=== PATIENT | female | born 1955 | race Caucasian/White ===

== ENCOUNTER 2022-06-23 10:01 | Emergency (ER) | payer OTHER ==
--- NOTE | 2022-06-23 10:33 | XRAY Report ---
PROCEDURE: Chest 2 View X-Ray INDICATIONS: cough with wheezing. TECHNIQUE: 2 views of the chest were acquired. COMPARISON: None. FINDINGS: Surgical changes and devices: None. Lungs and pleura: No pleural effusions or pneumothorax. Lungs are clear. Mediastinum: Mediastinal contours appear normal. Heart size is normal. Bones and chest wall: No suspicious bony lesions. Overlying soft tissues appear unremarkable. IMPRESSION: No acute cardiopulmonary process. Reviewed by: Cody Escamilla MD on 06/23/2022 10:32 AM PDT Approved by: Cody Escamilla MD on 06/23/2022 10:32 AM PDT Station ID: [id number]
[2022-06-23 10:58] VITALS: BP 197/98
--- NOTE | 2022-06-23 11:11 | ED Physician Documentation ---
PD HPI DYSPNEA - Stated complaint Stated Complaint: WHEEZING - Chief complaint Chief Complaint: Resp - History obtained from History obtained from: Patient - Additional information Additional information: 66-year-old woman with history of hypertension developed symptomatic COVID about a week ago. She took paxlovid finishing 3 days ago and she was feeling much better. Over the last day she has developed shaking chills, cough, wheezing, shortness of breath. PD PAST MEDICAL HISTORY - Present Medications Home Medications: Ambulatory Orders Medication Instructions Recorded Confirmed Albuterol Sulf [Ventolin Hfa 1 - 2 puffs INH Q4HR PRN #1 each 06/23/22 Inhaler] Benzonatate [Tessalon] 200 mg PO TID PRN #20 cap 06/23/22 Doxycycline [Vibramycin] 100 mg PO BID #14 tablet 06/23/22 guaiFENesin/CODEINE [Robitussin AC] 5 - 10 ml PO Q6H PRN #120 ml 06/23/22 predniSONE [Deltasone] 20 mg PO [id number] #21 tab 06/23/22 - Allergies Allergies/Adverse Reactions: Allergies Allergy/AdvReac Type Severity Reaction Status Date / Time Penicillins Allergy Anaphylaxis Verified 06/23/22 10:09 PD ED PE NORMAL - Vitals Vital signs reviewed: Yes - General General: Alert and oriented X 3, No acute distress - HEENT HEENT: PERRL, EOMI, Pharynx benign - Neck Neck: Supple, no meningeal sign, No bony TTP - Cardiac Cardiac: RRR, No murmur - Respiratory Respiratory: Other (Decreased at the left base with mild expiratory wheezes throughout. Nonlabored.) - Neuro Neuro: Alert and oriented X 3, Normal speech Results - Vitals Vitals: Vital Signs - 24 hr 06/23/22 06/23/22 10:06 10:56 Temperature 36.1 C L Heart Rate 77 81 Respiratory 16 18 Rate Blood Pressure 164/90 H 197/98 H O2 Saturation 97 100 Oxygen O2 Source Room air - Rads (name of study) Single view chest x-ray is unremarkable Relevant Findings:: Final report received, EMP independent interpretation of test PD Medical Decision Making - ED course ED course: Given the location of her abnormal breath sounds, there is concern for a small retrocardiac pneumonia. Treated with doxycycline noting penicillin allergy. Also symptomatic relief for other symptoms. Departure - Departure Disposition: 01 Home, Self Care Clinical Impression: Pneumonia Condition: Good Record reviewed to determine appropriate education?: Yes Instructions: ED Pneumonia Adult Prescriptions: Albuterol Sulf [Ventolin Hfa Inhaler] 1 - 2 puffs INH Q4HR PRN #1 each PRN Reason: Shortness Of Air/Wheezing predniSONE [Deltasone] 20 mg PO [id number] #21 tab guaiFENesin/CODEINE [Robitussin AC] 5 - 10 ml PO Q6H PRN #120 ml PRN Reason: Cough Benzonatate [Tessalon] 200 mg PO TID PRN #20 cap PRN Reason: Cough Doxycycline [Vibramycin] 100 mg PO BID #14 tablet Comments: [facility] your prescription electronically [facility] [address] [facility] [address] [place] [address] [facility] [place] As discussed, your x-ray looks fine and your oxygen numbers are okay, but given the focal abnormal breath sounds at the left base this could be an "occult pneumonia" that is in the pneumonia not seen on x-ray. Because of that we are going to give you some antibiotics. In addition I am prescribing steroids, inhaler, and 2 things for cough. Do not drink or drive while taking codeine-containing cough syrup. Follow-up with your doctor late this week for recheck, return if worse. Your blood pressure was elevated today on check into the emergency department (198/). It is a common phenomenon to come to the emergency department and have elevated blood pressure. I recommend that you see your primary care physician within the week to have it rechecked when you are feeling better.
== END 2022-06-23 12:35 | disposition home or self-care (01) ==
LOC: ED 10:01
DX: J18.9 Pneumonia, unspecified organism (principal); R03.0 Elevated blood-pressure reading, without diagnosis of hypertension
CPT/HCPCS: 99284

== ENCOUNTER 2022-11-01 10:45 | Outpatient (CLI) | payer OTHER | END 2022-11-01 23:59 | disposition EMS.NT | LOC: EMS 10:45 | DX: R55 Syncope and collapse (principal) ==

== ENCOUNTER 2022-11-01 11:28 | Emergency (ER) | payer OTHER ==
[2022-11-01] MEDS ORDERED: SODIUM CHLORIDE 0.9% 1,000 ML IV STA (11:46)
[2022-11-01 12:06] LABS: BASOPHILS # (AUTO) 0.1 10^3/uL (0.0-0.1); BASOPHILS % (AUTO) 1.4 %; EOSINOPHILS # (AUTO) 0.3 10^3/uL (0.0-0.7); EOSINOPHILS % (AUTO) 6.9 %; HCT - HEMATOCRIT 37.3 % (37.0-47.0); HGB - HEMOGLOBIN 11.8 g/dL (12.0-16.0); LYMPHOCYTES # (AUTO) 1.2 10^3/uL (1.5-3.5); MEAN CORPUSCULAR HEMOGLOBIN 28.7 pg (27.0-31.0); MEAN CORPUSCULAR HGB CONC 31.6 g/dL (32.0-36.0); MEAN CORPUSCULAR VOLUME 90.8 fL (81.0-99.0); MEAN PLATELET VOLUME 10.8 fL (7.9-10.8); MONOCYTES # (AUTO) 0.6 10^3/uL (0.0-1.0); MONOCYTES % (AUTO) 13.1 %; NEUTROPHILS # (AUTO) 2.1 10^3/uL (1.5-6.6); NEUTROPHILS % (AUTO) 49.6 %; PLT - PLATELET COUNT 266 10^3/uL (130-450); RED BLOOD COUNT 4.11 10^6/uL (4.20-5.40); RED CELL DISTRIBUTION WIDTH 12.9 % (12.0-15.0); WHITE BLOOD COUNT 4.2 x10^3/uL (4.8-10.8)
[2022-11-01 12:15] VITALS: O2SAT 100
[2022-11-01 12:23] LABS: ALBUMIN 4.4 g/dL (3.2-5.5); ALBUMIN/GLOBULIN RATIO 1.7 (1.0-2.2); BILIRUBIN,TOTAL 0.5 mg/dL (0.2-1.0); CALCIUM 9.7 mg/dL (8.5-10.3); CREATININE 1.2 mg/dL (0.6-1.3); POTASSIUM 3.2 mmol/L (3.5-4.5)
--- NOTE | 2022-11-01 13:12 | ED Physician Documentation ---
History of Present Illness - Stated complaint Stated Complaint: FAINTED - Chief complaint Chief Complaint: Neuro - History obtained from History obtained from: Patient, Family - Additonal information Additional information: The patient comes to the emergency department with her for chief complaint of "blanking out episode". She had been sitting in the hot tub for approximately 25 minutes when she began to feel too hot and a bit dizzy. She got out on the side of the hot tub to try to cool off, and a minute or 2 later, family noticed that she seemed to be staring straight ahead. They tried to talk to her but she did not answer any questions. estimates this episode lasted less than a minute. They helped her up to a chair and patient was able to go through the motions of getting up on her feet and getting into the chair. She did not at any point lose tone or collapse. The patient then began speaking again. She did not at any point have any focal neurologic deficits otherwise. The patient does note that she did not drink any water today between getting up from her night of sleep and getting in the hot tub. She denies feeling sick in any way. She did not have any nausea or vomiting. No chest pain or shortness of breath. She is feeling back to normal now. No other complaints at this time. No new medications or doses. She has never fainted or had anything like this happen before. PD PAST MEDICAL HISTORY - Present Medications Home Medications: Ambulatory Orders Medication Instructions Recorded Confirmed Atorvastatin Calcium 40 mg PO DAILY 11/01/22 11/01/22 Losartan Potassium 100 mg PO DAILY 11/01/22 11/01/22 hydroCHLOROthiazide [Hydrodiuril] 25 mg PO ONCE 11/01/22 11/01/22 - Allergies Allergies/Adverse Reactions: Allergies Allergy/AdvReac Type Severity Reaction Status Date / Time Penicillins Allergy Anaphylaxis Verified 06/23/22 10:09 PD ED PE NORMAL - Vitals Vital signs reviewed: Yes - General General: Alert and oriented X 3, No acute distress, Well developed/nourished - HEENT HEENT: Atraumatic, PERRL, EOMI, Moist mucous membranes - Neck Neck: Supple, no meningeal sign - Cardiac Cardiac: RRR, No murmur - Respiratory Respiratory: No respiratory distress, Clear bilaterally - Abdomen Abdomen: Soft, Non tender, Non distended - Derm Derm: Normal color, Warm and dry, No rash - Extremities Extremities: No deformity, No edema - Neuro Neuro: Alert and oriented X 3, map colorer 2-12 intact, No motor deficit, No sensory deficit, Normal speech - Psych Psych: Normal mood, Normal affect Results - Vitals Vitals: Vital Signs - 24 hr 11/01/22 11/01/22 11/01/22 11:32 12:08 13:53 Temperature 36.5 C Heart Rate 74 66 74 Respiratory 20 17 20 Rate Blood Pressure 130/82 H 150/86 H 165/83 H O2 Saturation 98 100 100 Oxygen O2 Source Room air - EKG (time done) 1155 EKG releavant findings:: EKG personally interpreted by author of this note. Relevant findings are: Rate: Rate (enter#) (72) Rhythm: NSR Ethel: Normal Intervals: Normal NH QRS: Normal Ischemia: Normal ST segments Compare to prior EKG: Old EKG unavailable Computer interpretation: Agree with computer - Labs Labs: Laboratory Tests 11/01/22 11/01/22 11/01/22 12:00 12:00 12:00 WBC 4.2 L RBC 4.11 L Hgb 11.8 L Hct 37.3 MCV 90.8 MCH 28.7 MCHC 31.6 L RDW 12.9 Plt Count 266 MPV 10.8 Neut # (Auto) 2.1 Lymph # (Auto) 1.2 L Saline # (Auto) 0.6 Eos # (Auto) 0.3 Baso # (Auto) 0.1 Absolute Nucleated RBC 0.00 Nucleated RBC % 0.0 Sodium 141 Potassium 3.2 L Chloride 104 Carbon Dioxide 29 Anion Gap 8.0 BUN 18 Creatinine 1.2 Estimated GFR (MDRD) 45 L Glucose 108 H Calcium 9.7 Total Bilirubin 0.5 AST 30 ALT 14 Alkaline Phosphatase 88 Troponin I High Sens 3.4 Total Protein 7.0 Albumin 4.4 Globulin 2.6 Albumin/Globulin Ratio 1.7 Lipase 34 PD Medical Decision Making - ED course Complexity details: reviewed results, re-evaluated patient, considered differential, d/w patient, d/w family ED course: The patient was very well-appearing upon arrival in the emergency department. She had not had any focal neurologic deficits, and although the patient and her were very concerned about the possibility of a "TIA", I did discuss with them that loss of consciousness or cognitive compromise is not a feature of TIA. We discussed the expected symptoms for a cerebrovascular event and also, what may have caused her symptoms today. I suspect that the patient is likely dehydrated from going through an entire night of sleep and the entire morning without drinking any water and then getting in the hot tub for a longer amount of time then she felt she should have. We have discussed how to avoid that situation in the future. The patient's labs and EKG look good today and she is stable for discharge home. We discussed the usual indications for follow-up and return. Departure - Departure Disposition: 01 Home, Self Care Clinical Impression: Hypokalemia Altered mental status Qualifiers: Altered mental status type: transient alteration of awareness Qualified Code(s): R40.4 - Transient alteration of awareness Condition: Stable Instructions: ED Altered Loc Comments: Overall, your tests look very good. Your symptoms are not consistent with a TIA, which does not cause unconsciousness or lapse in consciousness. You have not had enough water to drink, and additionally, were in the hot tub to the point of causing some physical stress to cardiovascular system. There is no evidence of heart attack today, and your heart rate/rhythm and blood pressure have not shown any concerning findings. It is important that you take your blood pressure medicines as soon as you get home to stay on your schedule. You do have a very slightly decreased potassium which will likely correct on its own with a good diet. You may have your doctor recheck this when you get back home and if it is chronically low, then you may need to be on potassium supplements. Please be sure you drink plenty of fluids for the rest of the day as well. You have been given a liter of saline solution here to help hydrate you. Forms: PCP List Discharge Date/Time: 11/01/22 13:53
[2022-11-01 13:55] VITALS: BP 165/83
== END 2022-11-01 13:53 | disposition home or self-care (01) ==
LOC: ED 11:28
DX: E87.6 Hypokalemia (principal); R40.4 Transient alteration of awareness; Z79.899 Other long term (current) drug therapy
CPT/HCPCS: 36415; 80053; 83690; 84484; 85025; 93005; 99284